=== PATIENT | female | born 1990 | race Caucasian/White ===

== ENCOUNTER 2023-03-05 08:23 | Emergency (ER) | payer BC, SELFPAY ==
--- NOTE | 2023-03-05 08:34 | ED.ABDPAIN ---
HPI - Abdominal Pain General Chief Complaint: Abdominal Pain Stated Complaint: Abdominal Pain,Diarrhea Source: patient and RN notes reviewed History of Present Illness HPI narrative: 32-year-old female presents to urgent care with complaints of diarrhea since August. Patient states she will intermittently have incontinence of diarrhea, mostly in the middle of the night. Patient states she has been taking Imodium almost every day with moderate relief. Patient denies any abdominal pain, vomiting, nausea, flank pain, dysuria, fevers, or chills. Patient denies any lower back pain, numbness, or tingling in her legs. Patient states she has appointment with GI MD in April and a new PCP appointment in the near future. Patient does admit to starting Wegovy in August as well. Related Data Home Medications Medication Instructions Recorded Confirmed indomethacin 75 mg 75 mg PO DAILY 05/18/19 03/05/23 capsule,extended release lamotrigine 200 mg tablet 200 mg PO DAILY 05/18/19 03/05/23 (Lamictal) sertraline 100 mg tablet (Zoloft) 100 mg PO DAILY 05/31/20 03/05/23 alprazolam 0.5 mg tablet (Xanax) 0.5 mg PO QHS PRN Anxiety 10/28/21 03/05/23 levonorgestrel 21 mcg/24 hours (8 1 device intrauterine ONCE 12/30/21 03/05/23 yrs) 52 mg intrauterine device (Mirena) Allergies Allergy/AdvReac Type Severity Reaction Status Date / Time oxycodone Allergy Unknown Unknown Verified 03/05/23 08:57 Review of Systems Review of Systems: CONSTITUTIONAL: Denies fever, chills, or sweats. EYES: Denies visual changes, redness, or discharge. ENT: Denies otalgia and sore throat CARDIOVASCULAR: Denies chest pain, palpitations, or edema. RESPIRATORY: Denies cough or dyspnea. GASTROINTESTINAL: Denies abdominal pain, nausea, vomiting, or diarrhea. GENITOURINARY: Denies dysuria or hematuria. SKIN: Denies rash or itching. MUSCULOSKELETAL: Denies back pain, joint pain, or myalgia. NEUROLOGIC: Denies headache, numbness, or weakness. Pertinent positives per HPI. [facility] Past Medical History Medical History Anxiety Depression Endometriosis PTSD (post-traumatic stress disorder) Surgical History Surgical History History of ankle surgery History of knee surgery History of laparoscopy Social History Social History Smoking status: Former smoker Smoking end date: 04/12/15 Alcohol intake: current Substance use type: marijuana Comments At the time of my signature, I reviewed and agree with the nursing past medical, surgical, social, and family history. There is no relevant family history pertinent to the patient complaint. Exam Narrative: GENERAL: This is a well-nourished, well-developed patient, in no apparent distress. HEAD: normocephalic, atraumatic. EYES: Sclera clear/white. Vision is grossly intact. EARS: External ears normal, auditory canals clear and without drainage, TMs normal without perforation. Hearing grossly intact. NOSE: External nose normal with no obvious nasal discharge, nares without redness, no rhinorrhea. THROAT: Mucous membranes moist, posterior pharynx clear. NECK: Neck supple, non-tender without lymphadenopathy, masses or thyromegaly. CARDIOVASCULAR: Regular rate and rhythm without murmurs, gallops, or rubs. RESPIRATORY: Clear to auscultation. Breath sounds equal bilaterally. No wheezes, rales, or rhonchi. GASTROINTESTINAL: Abdomen soft, non-tender, nondistended. Bowel sounds are active. No hepato-splenomegaly, or palpable masses. No guarding. SKIN: warm, intact with no suspicious lesions or rash, good texture and turgor. NEURO: awake, alert, and oriented to person, place and time. There were no obvious focal neurologic abnormalities. EXTREMITIES: No clubbing, cyanosis, or edema. No joint tenderness, effusion, or edema noted. BACK: Nontender wi
[2023-03-05 08:50] VITALS: BP 107/69; PULSE 87; RESP 18; TEMP 36.4; O2SAT 99
== END 2023-03-05 09:45 | disposition home or self-care (01) ==
PROVIDERS: Emergency Provider Nurse Practitioner Family
DX: R19.7 Diarrhea, unspecified (principal); F41.9 Anxiety disorder, unspecified; F32.A Depression, unspecified; N80.9 Endometriosis, unspecified; F43.10 Post-traumatic stress disorder, unspecified; Z87.891 Personal history of nicotine dependence
CPT/HCPCS: 99211; G0463